=== PATIENT | male | born 1955 | race Caucasian/White ===

== ENCOUNTER 2019-12-24 01:46 | Outpatient (CLI) | payer MEDICARE, SELFPAY ==
[2019-12-24 18:17] LABS: SARS-CoV-2 RNA PCR Negative
== END 2019-12-24 01:47 | disposition home or self-care (01) ==
LOC: ANHCOVIDDT 01:46
PROVIDERS: Visit Provider Otolaryngology
DX: Z01.812 Encounter for preprocedural laboratory examination (principal); Z20.828 Contact with and (suspected) exposure to other viral communicable diseases
CPT/HCPCS: 87635; C9803; U0003

== ENCOUNTER 2019-12-26 05:12 | Day surgery (SDC) | payer MEDICARE, SELFPAY ==
[2019-12-17 13:43] VITALS: BMI 25.1
--- NOTE | 2019-12-25 09:49 | P.PNAN_ITS ---
Anes - Initial Pre Proc Eval Procedure: Operation Date: 12/26/19 07:30 Proposed Procedures p Septoplasty - Theodore Forrest MD s Bilateral Inferior Turbinectomy - Theodore Forrest MD Date/Time: 12/25/19 09:49 Surgeon: Theodore Forrest MD Pre Op Diagnosis: Nasal Septal Deviation/ Turbinate Hypertrophy Patient Data Age: 64 Gender: M Height: 1.8 m Weight: 81.65 kg Allergies Allergy/AdvReac Type Severity Reaction Status Date / Time No Known Allergies Allergy Verified 12/26/19 06:02 Home Medications Medication Instructions Recorded Confirmed Type tramadol 50 mg tablet 50 mg PO Q6H PRN 12/15/19 12/26/19 History meloxicam 15 mg PO DAILY 12/17/19 12/26/19 History Patient hx anesthesia problems: none Family hx anesthesia problems: none [facility] Social History Social History Smoking status: Never smoker Spiritual care concerns: No Anes - Eval Final PreProcedure Day of Procedure 12/25/19 09:49 Patient weight: overweight Heart: regular rate and rhythm Lungs: clear to auscultation and normal air movement Airway: Mallampati scale class III Neurological: alert and oriented Last oral intake: >/= 8 hours ASA classification: II Emergent: no Anesthetic plan: proceed Anesthesia type and monitoring: general ETT and standard monitoring Informed Consent: The patient's anesthetic plan and its attendant risks and benefits were discussed with the patient/family/POA. Questions were solicited and answers provided to the satisfaction of the patient/family/POA.
--- NOTE | 2019-12-25 15:15 | PM.IMHP ---
H&P: HPI History of Present Illness Date/Time: 12/25/19 15:15 Chief complaint: Nasal Septal Deviation/ Turbinate Hypertrophy Narrative: Celestino Villanueva is a 64 year old male With a past medical history including nasal obstruction. Physical examination revealed septal deviation as well as bilateral inferior turbinate hypertrophy. The patient presents for surgery. Reports no changes in the aforementioned symptoms. No new medicines. No new medical conditions. Review of Systems Constitutional: Constitutional: Denies fatigue, Denies fever(s) and Denies lethargy Eyes: Eyes: Denies blurry vision and Denies change in vision ENT: Reports as per HPI Cardiovascular: Cardiovascular: Denies chest pain Respiratory: Respiratory: Denies cough Endocrine: Endocrine: Denies fatigue Hematologic/Lymphatic: Hematologic/Lymphatic: Denies easy bleeding, Denies easy bruising and Denies lymphadenopathy Allergic/Immunologic: Allergic/Immunologic: Denies seasonal rhinorrhea [facility] Social History Social History Smoking status: Never smoker Spiritual care concerns: No Meds Home Medications and Allergies Home Medications Medication Instructions Recorded Confirmed Type tramadol 50 mg tablet 50 mg PO Q6H PRN 12/15/19 12/17/19 History meloxicam 15 mg PO DAILY 12/17/19 12/17/19 History Allergies Allergy/AdvReac Type Severity Reaction Status Date / Time No Known Allergies Allergy Verified 12/17/19 13:43 Exam Const: General: cooperative, healthy appearing, comfortable, well developed and alert HENMT: Head: normal to inspection, normocephalic and atraumatic Ears: hearing grossly normal bilaterally, external ears normal, TM's normal bilaterally and EAC's normal General nose exam: Normal external nose present, Normal nares present, No nasal polyps present, mucous membranes and turbinates abnormal, abnormal septum and Other nasal findings present ( Septal deviation inferior turbinate hypertrophy) Face and sinus: normal facial exam Mouth: Yes Normal oral and palatal mucosa present, Yes lip normal, Yes tongue normal, Yes oropharynx normal and Yes moist mucous membranes Teeth and gingiva: dentition normal and gingiva normal Throat: posterior oropharynx normal, tonsils normal and uvula midline Eyes: General: appearance normal, both eyes and all related structures Periorbital: periorbital findings normal Eyelids: eyelids normal Conjunctivae: conjunctivae normal Sclera: sclerae normal Neck: Neck: normal visual inspection, full ROM and no lymphadenopathy Thyroid: thyroid normal Lymphatic: no lymphadenopathy noted Resp: Effort & Inspection: normal respiratory effort and able to speak in complete sentences Cardio: Jugular venous distension: no JVD Neuro: Cranial nerves: Yes CN's II-XII intact bilaterally Assessment and Plan Assessment and plan (1) Nasal septal deviation: Code(s): J34.2 - Deviated nasal septum Status: Acute Assessment and Plan: plan is for the OR for endoscopic assisted septoplasty, bilateral inferior turbinate submucosal resection with outfracture. Risks and benefits were discussed in great detail including septal perforation turbinate regrowth change in vision. 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 He was also informed that these risks are greater given his Afrin use. (2) Hypertrophy of both inferior nasal turbinates: Code(s): J34.3 - Hypertrophy of nasal turbinates Status: Acute (3) Nasal obstruction: Code(s): J34.89 - Other specified disorders of nose and nasal sinuses Status: Acute
[2019-12-26] MEDS: ACETAMINOPHEN 500 MG TABLET 1000 MG PO (06:27)
[2019-12-26] MEDS: LACTATED RINGERS 1,000 ML 30 ML IV CONT ×2 (06:27→09:18)
[2019-12-26 06:31] VITALS: BP 190/110; PULSE 90; RESP 16; TEMP 36.3; O2SAT 97
--- NOTE | 2019-12-26 07:04 | WPDHPUPDATE1 ---
History and Physical Update Update Date/Time: 12/26/19 07:04 History and Physical has been reviewed, including an updated exam of the patient. There are NO changes in the patient's condition. Risks, benefits, and alternatives have been discussed and questions answered. Patient agrees to proceed with procedure.
[2019-12-26] MEDS: ceFAZolin 2 GM/D5W 50 ML 2 GM/50 ML BAG IVPB (07:30)
[2019-12-26] MEDS: OXYMETAZOLINE HCL 0.05% NAS 15 ML BTL (*BKC) 1 SPRAY NASAL (07:41)
[2019-12-26] MEDS: LIDO 1%/EPINEPHRINE 1:100,000 20 ML VIAL 10 ML INFILTRATE (07:46)
[2019-12-26 09:20] VITALS: BP 145/91; PULSE 90; RESP 16; TEMP 36.1; O2SAT 100
--- NOTE | 2019-12-26 09:26 | P.OP_ITS ---
Procedure Note - Detailed Date of procedure: 12/26/19 Pre-op diagnosis: Nasal Septal Deviation/ Turbinate Hypertrophy Post-op diagnosis: same Procedure performed: 1. Endoscopic assisted septoplasty 2. Endoscopic bilateral submucosal resection of inferior turbinates with outfracture Description of procedure: The patient was correctly identified and consent was verified in the preoperative holding area. The patient was brought to the op erating room and a time-out was performed. General anesthesia was induced and an endotracheal tube was secured the patient's airway and taped to the left lower lip. The patient was then prepped and draped for the aforementioned procedure. 10 cc of 1% lidocaine with 1 100,000 parts epinephrine was injected into the anterior inferior turbinates as well as in the submucoperichondrial plane of the bilateral septum. A 15 blade was then utilized to perform a Zinc incision in the anterior left septum. Submucoperichondrial dissection occurred with combination of trey as well as 7 Persian suction. The septum was then crossed using a caudal and a right-sided mucoperichondrial flap was elevate. Deviated septum was then removed with a combination of Farhana forceps, through cut instrument, and osteotome. The septal Kendall incision was then sutured anteriorly using 5 0 fast gut and the caudal right-sided deviation was sutured to the left maxillary crest using a 4 0 PDS. The inferior turbinates were then debrided in the submucoperichondrial plane with microdebrider. There were then outfractured. Marquez splints were placed and sutured anteriorly with a 4 0 nylon suture. This marked in the procedure. Care of the patient was turned over to Anesthesiology. Of note there is a right- sided inferior based mucoperichondrial perforation with no concomitant left- sided mucoperichondrial perforation. I performed all dictated portions of the procedure. Anesthesia: GLMA Surgeon: Theodore Forrest MD Estimated blood loss (mL): 10 Drains: No Packing: No Complications: No immediate complications Condition: stable Disposition: PACU
[2019-12-26 09:35] VITALS: BP 148/94; PULSE 98; RESP 20; O2SAT 99
[2019-12-26 09:50] VITALS: BP 133/90; PULSE 98; RESP 16; O2SAT 99
[2019-12-26 10:07] VITALS: BP 174/109; PULSE 93; RESP 18
[2019-12-26 10:35] VITALS: BP 162/97; PULSE 93; RESP 18
--- NOTE | 2019-12-26 10:40 | SUR.PHASEII ---
1000; PT TAKEN TO BATHROOM PER STRETCHER UPON ARRIVAL TO [facility]. VOIDED. WALKED BACK TO ROOM. GAIT STEADY. AWAKE AND ALERT. DENIES PAIN. SM AMT BLEEDING FROM NOSE. DRIP PAD CHANGED PRN
--- NOTE | 2019-12-26 10:57 | SUR.PHASEII ---
1035; PT AWAKE AND ALERT. SM AMT BLOODY OOZING FROM NOSE TO DRIP PAD. PT DENIES PAIN OR NAUSEA. ASKING TO GET DRESSED AND GO HOME. MEETS DISCHARGE CRITERIA.
== END 2019-12-26 11:01 | disposition home or self-care (01) ==
PROVIDERS: Visit Provider Otolaryngology
PROC: (CPT 30520; principal; 2019-12-26 07:30)
PROC: (CPT 30140; 2019-12-26 07:30)
DX: J34.2 Deviated nasal septum (principal); J34.3 Hypertrophy of nasal turbinates; J34.89 Other specified disorders of nose and nasal sinuses
CPT/HCPCS: 30140; 30520; A9270; J0360; J0690; J1100; J1940; J2250; J2370; J2405; J2704; J3010; J7120

== ENCOUNTER 2021-08-27 09:03 | Emergency (ER) | payer MEDICARE, SELFPAY ==
[2021-08-27 09:25] VITALS: BP 177/108; PULSE 101; RESP 18; TEMP 36.3; O2SAT 100
--- NOTE | 2021-08-27 10:26 | ED.BACK ---
HPI - Back Pain/Injury General Chief Complaint: Back Pain/Injury Stated Complaint: feels like kidneys are going to blow up Time Seen by Provider: 08/27/21 10:17 History of Present Illness HPI Narrative: Patient is a 65-year-old male here for evaluation of left low back pain for the past day. Patient states the pain originates in his left lower back and shoots down his left lower extremity into his foot. States that the pain is worse when he is up and walking and with certain positions. He has tried tramadol without relief. Denies injury, falls, recent exertion. Denies history of kidney stones, denies urinary complaints, fevers, chills, incontinence or retention of bowel or bladder, saddle anesthesia. Related Data Home Medications Medication Instructions Recorded Confirmed tramadol 50 mg tablet 50 mg PO Q6H PRN Pain 12/15/19 12/26/19 meloxicam 15 mg tablet 15 mg PO DAILY 12/17/19 12/26/19 Allergies Allergy/AdvReac Type Severity Reaction Status Date / Time No Known Allergies Allergy Verified 08/27/21 10:21 Review of Systems Review of Systems: Gen.: Denies fevers or chills Eyes: Denies eye pain or visual change ENT: Denies congestion Respiratory: Denies shortness of breath or cough CV: Denies chest pain or palpitations GI: Denies abdominal pain nausea, emesis or diarrhea denies burning, urgency, frequency or hematuria Musculoskeletal: Reports back pain Neuro: Denies numbness, tingling, weakness or focal weakness Skin: Denies rash Except as documented, all other systems reviewed and negative PMFSH Social History Social History Smoking status: Never smoker Second hand tobacco smoke exposure: No Alcohol intake: never Substance use: never Spiritual care concerns: No Exam Narrative: APPEARANCE: Well appearing, no pain in distress, well-nourished. Head: Normocephalic and atraumatic. EYES: PERRLA/EOMI, conjunctivae clear NOSE: No nasal drainage EARS: External ear normal in appearance THROAT: Oropharynx is clear. Mucous membranes are moist. NECK: Supple. No adenopathy, no masses. RESPIRATORY: Airway patent, respirations nonlabored. Clear to auscultation bilaterally, no rales, rhonchi, wheezing. CARDIOVASCULAR: Equal pulses in all 4 extremities. Regular rate and rhythm without murmurs, rubs, or gallops. ABDOMINAL: Normoactive bowel sounds. Soft, nontender, nondistended. No rebound tenderness or guarding. MUSCULOSKELETAL: Straight leg raise positive on the left. No midline tenderness along C, T, or L-spine. Extremities are warm and well-perfused. Moves all extremities well. No edema. NEURO: Normal speech. No focal neurologic deficits. SKIN: Skin is warm and dry. No rashes. PSYCHIATRIC: Normal affect/mood. Course Vital Signs Vital signs: Vital Signs Temperature 97.4 F L 08/27/21 09:25 Pulse Rate 101 H 08/27/21 09:25 Respiratory Rate 18 08/27/21 09:25 Blood Pressure 177/108 H 08/27/21 09:25 Pulse Oximetry 100 08/27/21 09:25 Oxygen Delivery Room Air 08/27/21 09:25 Temperature 97.4 F L 08/27/21 09:25 Pulse Rate 82 08/27/21 12:11 Respiratory Rate 18 08/27/21 12:11 Blood Pressure 174/120 H 08/27/21 12:11 Pulse Oximetry 98 08/27/21 12:11 Oxygen Delivery Room Air 08/27/21 09:25 MDM - Back Pain/Injury MDM Narrative Medical decision making narrative: 55-year-old male here for evaluation of left low back pain that radiates down his left leg. This patient presents with back pain most consistent with sciatica. Differential diagnoses includes lumbago versus musculoskeletal spasm / strain versus sciatica. No back pain red flags on history or physical. Presentation not consistent with malignancy (lack of history of malignancy, lack of B symptoms), fracture (no trauma, no bony tenderness to palpation), cauda equina (no bowel or urinary incontinence/retention, no saddle anesthesia, no distal weakness), AAA, viscus perfora
[2021-08-27] MEDS: IBUPROFEN 400 MG TABLET 800 MG PO (10:46)
[2021-08-27] MEDS: ACETAMINOPHEN 325 MG TABLET 650 MG PO (10:47)
[2021-08-27] MEDS: LIDOCAINE 5% PATCH 1 PATCH TRANSDERM (11:00)
[2021-08-27 11:05] VITALS: BP 186/106; PULSE 90; RESP 18; O2SAT 98
[2021-08-27 12:11] VITALS: BP 174/120; PULSE 82; RESP 18; O2SAT 98
== END 2021-08-27 12:10 | disposition home or self-care (01) ==
PROVIDERS: Emergency Provider Emergency Medicine
DX: M54.30 Sciatica, unspecified side (principal)
CPT/HCPCS: 96372; 99283; A9270; J1100

== ENCOUNTER 2023-01-04 09:19 | Emergency (ER) | payer MEDICARE, OTHER, SELFPAY ==
--- NOTE | ~2023-01-04 | US_ITS ---
EXAMINATION: US venous doppler LE RT DATE: 01/04/2023 10:57 INDICATION: Right lower limb swelling and pain TECHNIQUE: Tolentino scale images without and with compression and Doppler images of the right lower extre mity veins were obtained. COMPARISON: None FINDINGS: There is partial partial peroneal vein thrombosis The right common femoral vein, profunda f emoral vein, femoral vein, popliteal vein, posterior tibial veins, and greater saphenous vein are pat ent. IMPRESSION: 1. Partial peroneal vein thrombosis. These findings were discussed with Dr. Duong Pickens MD in the Emergency Department at 1106 hours on 01/04/2023. Reviewed, dictated and finalized at location L. [employer] IMPRESSION: 1. Partial peroneal vein thrombosis. These findings were discussed with Dr. And rew Cassy Pickens MD in the Emergency Department at 1106 hours on 01/04/2023.
[2023-01-04 09:46] VITALS: BP 154/97; PULSE 99; RESP 18; TEMP 36.3; O2SAT 100
[2023-01-04] MEDS: HYDROcodone/acetaminophen (*CRX) 5-325 MG TABLET 1 TAB PO (10:48)
--- NOTE | 2023-01-04 10:49 | PC.NURSE ---
U/S at bedside at this time.
[2023-01-04 10:51] VITALS: BP 143/93; PULSE 103; RESP 17; O2SAT 100
--- NOTE | 2023-01-04 11:40 | ED.LOWEXIN ---
HPI - Extremity Injury (Lower) General Chief Complaint: Extremity Injury, Lower Stated Complaint: right foot pain Time Seen by Provider: 01/04/23 09:24 History of Present Illness HPI Narrative: Patient is a 67-year-old male who presents ER with right foot swelling and leg pain. Ongoing over the last 3 weeks. Reports he has had intermittent swelling of his right foot for a while but this time it did not improve and has been ongoing for several weeks. He is developed pain in the posterior aspect of his calf moving behind his knee that is worse with flexion extension. No injury. No chest pain or chest pressure or difficulty breathing. No history of blood clots in the past. No discoloration to the skin. Related Data Home Medications Medication Instructions Recorded Confirmed tramadol 50 mg tablet 50 mg PO Q6H PRN Pain 12/15/19 12/26/19 meloxicam 15 mg tablet 15 mg PO DAILY 12/17/19 12/26/19 Allergies Allergy/AdvReac Type Severity Reaction Status Date / Time No Known Allergies Allergy Verified 08/27/21 10:21 Review of Systems Review of Systems: All systems reviewed & are unremarkable except as noted in HPI and below Constitutional: Constitutional: Denies chills, Denies fatigue and Denies fever(s) Cardiovascular: Cardiovascular: Denies chest pain, Denies rapid heart rate and Denies radiating jaw, neck or arm pain Respiratory: Respiratory: Denies cough, Denies dyspnea and Denies wheezing Musculoskeletal: Musculoskeletal: Denies back pain, Denies arthralgias and Reports joint swelling PMFSH Past Medical History Medical History (Updated 01/04/23 @ 11:44 by Duong Pickens MD) Hyperlipidemia Hypertension Hypertrophy of both inferior nasal turbinates Surgical History Surgical History (Updated 01/04/23 @ 11:44 by Duong Pickens MD) No pertinent past surgical history Social History Social History Smoking status: Never smoker Second hand tobacco smoke exposure: No Alcohol intake: never Substance use: never Spiritual care concerns: No Exam Narrative: GENERAL: Well-appearing, well-nourished, and in no acute distress. HEAD: Normocephalic, atraumatic. CHEST: Clear to auscultation. No respiratory distress. HEART: Regular rate and rhythm. Normal peripheral pulses. EXTREMITIES: Normal range of motion. 1+ edema right foot. Tender posterior calf and knee right side. SKIN: Warm, dry, no rash. NEURO: Alert and oriented x3. PSYCH: Normal mood and affect. Course Course Emergency Course: Patient resting comfortably. Pain improved with [place]. He has been informed of the imaging results. Discussed treatment with anticoagulants and need to discontinue NSAID therapy. Patient verbalized understanding. He has pre-existing follow-up with his PCP scheduled for 01/08/2023. Vital Signs Vital signs: Vital Signs Temperature 97.4 F L 01/04/23 09:46 Pulse Rate 99 01/04/23 09:46 Respiratory Rate 18 01/04/23 09:46 Blood Pressure 154/97 H 01/04/23 09:46 Pulse Oximetry 100 01/04/23 09:46 Oxygen Delivery Room Air 01/04/23 09:46 Temperature 97.4 F L 01/04/23 09:46 Pulse Rate 103 H 01/04/23 10:51 Respiratory Rate 17 01/04/23 10:51 Blood Pressure 143/93 H 01/04/23 10:51 Pulse Oximetry 100 01/04/23 10:51 Oxygen Delivery Room Air 01/04/23 09:46 Discharge Plan Discharge Clinical Impression: DVT (deep venous thrombosis) Patient Disposition: Home, Self-Care Condition: Stable Instructions: Deep Vein Thrombosis (ED) Additional Instructions: You have a symptomatic blood clot in the peroneal vein of the right lower extremity. You are being started on a blood thinning medication. Follow-up with your primary care doctor. Discontinue any use of meloxicam/ibuprofen/naproxen. Return the ER if you fall and strike your head, you have chest pain or shortness of breath, or you have dark black stools. Pr
[2023-01-04 11:53] VITALS: BP 132/81; PULSE 71; RESP 18; O2SAT 99
== END 2023-01-04 11:55 | disposition home or self-care (01) ==
PROVIDERS: Emergency Provider Emergency Medicine
DX: I82.451 Acute embolism and thrombosis of right peroneal vein (principal); E78.5 Hyperlipidemia, unspecified; I10 Essential (primary) hypertension
CPT/HCPCS: 93971; 99284; A9270

== ENCOUNTER 2023-01-19 09:00 | Emergency (ER) | payer MEDICARE, OTHER, SELFPAY ==
[2023-01-19] VITALS (13 sets, daily range): BP systolic 121–150; BP diastolic 72–86; PULSE 68–110; RESP 14–23; TEMP 36.3; O2SAT 97–100
--- NOTE | ~2023-01-19 | CT_ITS ---
EXAMINATION: CTA chest PE protocol DATE: 01/19/2023 11:39 INDICATION: Transient alteration of awareness TECHNIQUE: Computed tomography angiography (CTA) of the chest was performed with 100 mL Omnipaque-350 intravenous contrast timed to evaluate the pulmonary arteries. Coronal maximum intensity projection 3D-reconstructions were created by the technologist. The dose-length product (DLP) was 292.95 mGy-cm. Automated exposure control and iterative reconstruction technique were employed. COMPARISON: None. FINDINGS: The pulmonary arteries are well-opacified. No pulmonary embolism is identified. There is mo derate emphysema. Dependent atelectasis is noted. No pleural effusion or pneumothorax. There is a sma ll sliding hiatal hernia. No pathologically enlarged thoracic lymph nodes are identified. The heart s ize is normal. There is mild thoracic spondylosis. IMPRESSION: 1. No pulmonary embolism or acute cardiopulmonary abnormality. Reviewed, dictated and finalized at location [facility]. [employer]
--- NOTE | ~2023-01-19 | US_ITS ---
EXAMINATION: US venous doppler [facility] DATE: 01/19/2023 12:25 INDICATION: Bilateral lower limb swelling TECHNIQUE: Tolentino scale images without and with compression and Doppler images of the bilateral lower e xtremity veins were obtained. COMPARISON: 01/04/2023 FINDINGS: The right common femoral vein, profunda femoral vein, femoral vein, popliteal vein, peroneal trunk, p osterior tibial veins, and greater saphenous vein are patent. The left common femoral vein, profunda femoral vein, femoral vein, popliteal vein, peroneal trunk, po sterior tibial veins, and greater saphenous vein are patent. IMPRESSION: 1. Patent bilateral lower extremity veins. No evidence of deep venous thrombosis. Reviewed, dictated and finalized at location F. [employer] P[employer] IMPRESSION: 1. Patent bilateral lower extremity veins. No evidence of deep venous thrombosi s.
[2023-01-19 09:36] LABS: Basophils Absolute Auto 0.1 K/mm3 (0.0-0.1); Basophils Percent Auto 0.7 % (0.2-1.2); Eosinophils Absolute Auto 0.3 K/mm3 (0-0.3); Eosinophils Percent Auto 3.8 % (0-4.4); Hemoglobin 14.6 g/dL (14.0-18.0); Immature Granulocyte Absolute 0.03 K/mm3 (0.00-0.031); Immature Granulocyte Percent A 0.4 % (0-0.5); Lymphocytes Absolute Auto 1.94 K/mm3 (0.9-3.2); Lymphocytes Percent Auto 25.3 % (18.3-44.2); Mean Corpuscular HGB Conc 32.4 g/dl (32-36); Mean Corpuscular Hemoglobin 28.6 pg (26-34); Mean Corpuscular Volume 88.2 fl (80-100); Mean Platelet Volume 10.5 fl (7.4-10.4); Monocytes Absolute Auto 0.7 K/mm3 (0.1-0.6); Monocytes Percent Auto 9.1 % (2.6-8.5); Neutrophils Absolute Auto 4.7 K/mm3 (1.3-6.7); Neutrophils Percent Auto 60.7 % (45.5-73.1); Platelet Count Result 484 k/mm3 (150-375); Red Cell Distribution Width 13.4 % (11.5-14.5); White Blood Count 7.7 K/mm3 (4.5-10.0)
--- NOTE | 2023-01-19 09:39 | PC.NURSE ---
This RN placed an IV in the pt wrist. Pt began to feel nauseated and became flushed. Pt then began to have a vagal response. in the room. Seizure pads placed.
[2023-01-19 09:46] LABS: INR 1.3; Prothrombin Time 16.4 Seconds (11.1-14.7)
[2023-01-19 09:47] LABS: Partial Thromboplastin Time 43.1 SECONDS (22.3-36.8)
--- NOTE | 2023-01-19 09:55 | ED.EXTPRO ---
HPI - Extremity Problem General Chief complaint: Extremity Problem,Nontraumatic Stated complaint: DVT Time Seen by Provider: 01/19/23 09:14 History of Present Illness HPI Narrative: 67-year-old male history of DVT presenting to the emergency department for evaluation of bilateral leg pain has been ongoing for the last week. Patient states he was diagnosed with a DVT recently and has been taking Eliquis. Patient denies any associated chest pain or shortness of breath. Patient denies associated nausea vomiting or diarrhea. Patient denies any falls or injuries. patient reports the pain has been persistent since October patient has had follow-up with his physicians for this pain. Related Data Home Medications Medication Instructions Recorded Confirmed tramadol 50 mg tablet 50 mg PO Q6H PRN Pain 12/15/19 12/26/19 meloxicam 15 mg tablet 15 mg PO DAILY 12/17/19 12/26/19 Allergies Allergy/AdvReac Type Severity Reaction Status Date / Time No Known Allergies Allergy Verified 01/19/23 10:16 Review of Systems Review of Systems: All systems reviewed & are unremarkable except as noted in HPI and below PMFSH Past Medical History Medical History (Updated 01/20/23 @ 00:00 by Celio Haynes) Hyperlipidemia Hypertension Hypertrophy of both inferior nasal turbinates Surgical History Surgical History (Updated 01/04/23 @ 11:44 by Duong Pickens MD) No pertinent past surgical history Social History Social History Smoking status: Never smoker Second hand tobacco smoke exposure: No Alcohol intake: never Substance use: never Spiritual care concerns: No Exam Narrative: APPEARANCE: Well appearing, no pain, no distress, well-nourished. HEAD: normocephalic, atraumatic. EYES: PERRLA/EOMI, conjunctivae clear. NOSE: Normal no drainage EARS:TMS clear with good light reflex. THROAT: Pharynx clear, no exudate. NECK: Supple. No adenopathy, no masses. RESPIRATORY: Airway patent, respirations nonlabored. Clear to auscultation bilaterally, no rales, rhonchi, wheezing. CARDIOVASCULAR: Regular rate and rhythm without murmurs rubs or gallops. ABDOMINAL: Soft, nontender, nondistended, normal bowel sounds MUSCULOSKELETAL: Moves all extremities. Strength/ROM intact, No edema, No calf tenderness. No reproducible leg tenderness to palpation NEURO: Alert. Cranial nerves II through XII intact. Good gait. Good coordination SKIN: Warm, dry. Normal Color PSYCHIATRIC: Normal affect/mood. Course Course Emergency Course: 67-year-old male presents to the emergency department for evaluation of leg pain since October. Patient has been taking tramadol since then. Patient states the tramadol is not helping. Patient is afebrile with no leukocytosis and a stable hemoglobin. No significant abnormalities on his CMP. Ultrasound was negative for DVT, CTA was negative for pulmonary embolism and patient's uric acid was not elevated. Patient and family were updated on the results of the workup. Patient was encouraged to have close follow-up with his primary care physician. All questions are addressed. Vital Signs Vital signs: Vital Signs Temperature 97.4 F L 01/19/23 09:07 Pulse Rate 110 H 01/19/23 09:07 Respiratory Rate 18 01/19/23 09:07 Blood Pressure 142/72 H 01/19/23 09:07 Pulse Oximetry 99 01/19/23 09:07 Oxygen Delivery Room Air 01/19/23 09:07 Temperature 97.4 F L 01/19/23 09:07 Pulse Rate 71 01/19/23 14:11 Respiratory Rate 16 01/19/23 14:11 Blood Pressure 121/82 01/19/23 14:11 Pulse Oximetry 100 01/19/23 14:11 Oxygen Delivery Room Air 01/19/23 09:07 MDM - Extremity (Nontraumatic) Lab Data 01/19/23 09:27 01/19/23 11:09 Labs: Lab Results 01/19/23 01/19/23 Range/Units 09:27 11:09 WBC 7.7 (4.5-10.0) K/mm3 RBC 5.10 (4.6-6.20) M/mm3 Hgb 14.6 (14.0-18.0) g/dL Hct 45.
[2023-01-19 10:12] LABS: Creatine Kinase 148 U/L (55-170)
[2023-01-19 11:24] LABS: Anion Gap 13 mmol/L (8-16); Blood Urea Nitrogen 24 mg/dL (9-20); Calcium 9.5 mg/dL (8.4-10.2); Carbon Dioxide 23 mmol/L (22-30); Chloride 102 mmol/L (98-107); Estimated CRCL calculation 48 ml/min; Estimated Glomerular Filt Rate 50; Glucose 125 mg/dL (65-110); Potassium 4.8 mmol/L (3.4-5.0); Sodium 138 mmol/L (137-145); Uric Acid 6.8 mg/dL (3.5-8.5)
== END 2023-01-19 14:13 | disposition home or self-care (01) ==
PROVIDERS: Emergency Provider Emergency Medicine
DX: M79.605 Pain in left leg (principal); M79.604 Pain in right leg; G89.29 Other chronic pain; Z86.718 Personal history of other venous thrombosis and embolism; Z79.01 Long term (current) use of anticoagulants; E78.5 Hyperlipidemia, unspecified; I10 Essential (primary) hypertension
CPT/HCPCS: 36415; 71275; 80048; 82550; 84550; 85025; 85610; 85730; 93970; 99284; Q9967

== ENCOUNTER 2023-05-03 12:36 | Emergency (ER) | payer MEDICARE, OTHER, SELFPAY ==
--- NOTE | ~2023-05-03 | XR_ITS ---
Clinical Indication: Cough PA and lateral views of the chest: Comparison: None Findings: The lungs are clear, without evidence of focal consolidation or pleural effusion. Cardiome diastinal silhouette is within normal limits. Bones and soft tissues are unremarkable. Impression: Normal chest. Reviewed, dictated and finalized at [facility]. [employer] Impression: Normal chest.
[2023-05-03 12:46] VITALS: BP 157/86; PULSE 100; RESP 16; TEMP 37.2; O2SAT 100
--- NOTE | 2023-05-03 13:11 | ED.URI ---
HPI - URI/Sore Throat General Chief Complaint: Upper Respiratory Infection Stated Complaint: cough,congestion Time Seen by Provider: 05/03/23 13:11 Source: patient Mode of arrival: ambulatory Limitations: no limitations History of Present Illness HPI Narrative: Celestino is a 59-year-old male patient presenting to the ER today with complaints of cough and congestion x2 weeks. He reports he does have intermittent shortness of breath times. States that he is bringing up some yellow phlegm. Denies any known fever or chills. Reports that he became ill after taking his to the hospital for breast surgery. He is a nonsmoker. No history of COPD or asthma. SpO2 on room air is 100%. He denies any lower extremity edema. Related Data Home Medications Medication Instructions Recorded Confirmed tramadol 50 mg tablet 50 mg PO Q6H PRN Pain 12/15/19 12/26/19 meloxicam 15 mg tablet 15 mg PO DAILY 12/17/19 12/26/19 Allergies Allergy/AdvReac Type Severity Reaction Status Date / Time No Known Allergies Allergy Verified 01/19/23 10:16 Review of Systems Review of Systems: Pertinent positives per HPI. Patient denies any fever, chills, rash, headache, visual changes, dizziness,sore throat,chest pain, palpitations, nausea, vomiting, diarrhea, constipation, abdominal pain, or any urinary issues. PMFSH Past Medical History Medical History Hyperlipidemia Hypertension Hypertrophy of both inferior nasal turbinates Surgical History Surgical History (Updated 01/04/23 @ 11:44 by Duong Pickens MD) No pertinent past surgical history Social History Social History Smoking status: Never smoker Second hand tobacco smoke exposure: No Alcohol intake: never Substance use: never Spiritual care concerns: No Comments At the time of my signature, I reviewed and agree with the nursing past medical, surgical, social, and family history. There is no relevant family history pertinent to the patient complaint. Exam Narrative: General: Well-developed, well nourished, in no apparent distress Head: Normocephalic, atraumatic Eyes: Pupils equally round and reactive to light bilaterally, EOM intact, sclera and conjunctive clear, no discharge, lids normal Ears: TMs intact and clear, ear canals clear, no drainage, grossly hearing normal. Nose: Nares patent, clear discharge, no inflammation, no sinus tenderness. Mouth: Oropharynx without lesions or masses, good dentition, MMM. Neck: Supple, trachea midline, no enlargement of anterior or posterior cervical nodes, no thyroid masses or goiter palpable. Cardio: Regular rate and rhythm, s1 and s2 normal, no murmur appreciated. Resp: Faint inspiratory and expiratory wheeze in specifically over the left posterior, no rhonchi, rales, or rubs Course Course Emergency Course: Portions of this record may have been created with voice recognition software. Vital Signs Vital signs: Vital Signs Temperature 37.2 C 05/03/23 12:46 Pulse Rate 100 05/03/23 12:46 Respiratory Rate 16 05/03/23 12:46 Blood Pressure 157/86 H 05/03/23 12:46 Pulse Oximetry 100 05/03/23 12:46 Temperature 37.2 C 05/03/23 12:46 Pulse Rate 100 05/03/23 12:46 Respiratory Rate 16 05/03/23 12:46 Blood Pressure 157/86 H 05/03/23 12:46 Pulse Oximetry 100 05/03/23 12:46 Vital signs reviewed MDM - URI/Sore Throat MDM Narrative Medical decision making narrative: At the time of visit patient is resting comfortably on the exam table. Patient appears to be nontoxic. Labs: COVID, influenza, and RSV testing completed Diagnostics: Chest x-ray is negative for any sign of pneumonia. Plan: i suspect patient has bronchitis. Prescription for prednisone, albuterol inhaler, and azithromycin was sent to the pharmacy. Supportive measures were discussed with the margarte
[2023-05-03 13:36] LABS: Influenza A QL RT-PCR Positive (Negative); Influenza B QL RT-PCR Negative (Negative); RSV RNA, RT-PCR Negative (Negative); SARS-CoV-2 RNA PCR Negative (Negative)
== END 2023-05-03 13:44 | disposition home or self-care (01) ==
LOC: ANHED 13:33
PROVIDERS: Student in an Organized Health Care Education/Training Program; Emergency Provider Nurse Practitioner Family
DX: J40 Bronchitis, not specified as acute or chronic (principal); J10.1 Influenza due to other identified influenza virus with other respiratory manifestations; E78.5 Hyperlipidemia, unspecified; I10 Essential (primary) hypertension; Z20.822 Contact with and (suspected) exposure to COVID-19
CPT/HCPCS: 71046; 87637; 99283